=== PATIENT | male | born 1990 | race Caucasian/White ===

== ENCOUNTER 2019-11-07 07:47 | Outpatient (CLI) | payer BC ==
--- NOTE | 2019-11-07 14:01 | MRI ---
MRI LEFT ANKLE WITHOUT CONTRAST: 11/07/19 HISTORY: Peroneal tendonitis. COMPARISON: None. FINDINGS: LIGAMENTS: The AITFL and PITFL are intact. ATFL is intact. The CFL is felt to be intact. The superior medial band spring ligament is intact. The short and long plantar ligaments are intact. The inferior longitudinal and medial plantar oblique spring ligament are intact. TENDONS: The Achilles tendon is intact. No paratendonitis. The fibro-osseous ridge of the peroneal groove is i ntact at the lateral malleolus. There is a very low grade tenosynovial fluid within the peroneal tend on sheath just passed the tip of the lateral malleolus with some very mild reactive periosteal edema. There is normal insertion of the peroneus brevis tendon on the fifth metatarsal tuberosity. Normal a ppearance of the peroneus longus. MUSCLES: The muscle signal and bulk is normal. BONES: Limited evaluation of the Lisfranc interval appears to be maintained. No fracture. No malalignment. N o contusion. No osteochondral defect of the talar dome or the tibial plafond. IMPRESSION: 1. Minimal tenosynovial fluid within the peroneal tendon sheath just beyond the lateral malleolu s with some very low grade periosteal reaction of the lateral malleolar tip may be from underlying fr iction. No subluxation or longitudinal split tear. 2. Remainder of the lateral ankle is intact without underlying ligamentous injury. No abnormalit y of the calcaneocuboid joint or extensor digitorum brevis musculature nor the bifurcate ligament of the dorsal calcaneocuboid ligament. 3. No evidence for lateral plantar insertional fasciopathy. POS: CET
== END 2019-11-07 07:48 | disposition home or self-care (01) ==
LOC: SCSMRI 07:47
PROVIDERS: ATTEND Podiatrist
DX: S93.402A Sprain of unspecified ligament of left ankle, initial encounter (principal); M76.72 Peroneal tendinitis, left leg